=== PATIENT | female | born 1940 | race Caucasian/White ===

== ENCOUNTER 2017-02-02 13:00 | Inpatient (IN) | payer OTHER ==
[~2017-02-02] VITALS: Ht 160 cm; Wt 64.8 kg
[~2017-02-02 13:00] MED LIST: ALT5C PO; ATOR10TA PO; HYDR25TA4 PO; LYR25C PO
[2017-02-08 14:36] LABS: BASOPHILS % (AUTO) 0.4 % (0-1); EOSINOPHILS # (AUTO) 0.1 X10'3 (0-0.9); EOSINOPHILS % (AUTO) 1.6 % (0-6); LYMPHOCYTES # (AUTO) 2.4 X10'3 (1.1-4.8); LYMPHOCYTES % (AUTO) 33.5 % (21-51); MEAN CORPUSCULAR HEMOGLOBIN 30.7 PG (27.0-31.0); MEAN CORPUSCULAR HGB CONC 33.8 % (33.0-36.5); MEAN CORPUSCULAR VOLUME 90.9 FL (78-98); MEAN PLATELET VOLUME 7.6 FL (7.4-10.4); MONOCYTES # (AUTO) 0.6 X10'3 (0-0.9); MONOCYTES % (AUTO) 8.1 % (2-12); NEUTROPHILS % (AUTO) 56.4 % (42-75); PRE OP HEMATOCRIT 40.4 % (35.0-45.0); PRE OP HEMOGLOBIN 13.6 g/dL (12.0-16.0); PRE OP PLATELET COUNT 316 X10'3 (140-440); RED BLOOD COUNT 4.44 X10'6 (4.20-5.60); RED CELL DISTRIBUTION WIDTH 13.6 % (11.5-14.5)
[2017-02-08] MEDS ORDERED: HYDR-89 PO (14:36)
[2017-02-08 14:51] LABS: ALBUMIN 3.8 G/DL (3.4-5.0); ALBUMIN/GLOBULIN RATIO 1.2 (1.1-1.5); ALKALINE PHOSPHATASE 98 IU/L (46-116); BLOOD UREA NITROGEN 25 MG/DL (7-18); BUN/CREATININE RATIO 30.1 (6.6-38.0); CALCIUM 9.4 MG/DL (8.5-10.1); CHLORIDE 106 MMOL/L (99-107); CREATININE 0.83 MG/DL (0.40-0.90); PRE OP ALT 24 U/L (30-65); PRE OP ANION GAP 8 (8-16); PRE OP AST 17 U/L (10-37); PRE OP BILIRUB, TOTAL 0.3 MG/DL (0.0-1.0); PRE OP GLUCOSE 113 MG/DL (70-104); PRE OP POTASSIUM 3.6 MMOL/L (3.4-5.1); PRE OP SODIUM 142 MMOL/L (135-145); TOTAL CARBON DIOXIDE 28.1 MMOL/L (24-32); TOTAL PROTEIN 7.1 G/DL (6.4-8.2); eGFR 67 ML/MIN
[2017-02-08 15:01] LABS: CLARITY,URINE CLEAR (Clear); COLOR,URINE YELLOW (Yellow); GLUCOSE, URINE NEGATIVE (Neg); KETONES,URINE NEGATIVE (Neg); LEUKOCYTE ESTERASE ,URINE NEGATIVE (Neg); NITRITES, URINE NEGATIVE (Neg); OCCULT BLOOD,URINE SMALL (Neg); PH,URINE 5.5 (4.8-8.0); PROTEIN,URINE NEGATIVE (Neg); UROBILINOGEN,URINE 0.2 E.U/dL (0.2-1.0)
[2017-02-08 15:02] LABS: UA COLLECTION TYPE CLN CATCH MIDSTREAM
[2017-02-08 15:27] LABS: BACTERIA,URINE 1+ /HPF (Neg); MUCUS STRANDS FEW /LPF (Neg); SQUAMOUS EPITHELIAL CELL,UR MODERATE /LPF (FEW)
[2017-02-14] VITALS (17 sets, daily range): BP systolic 90–152; BP diastolic 43–91
[2017-02-14] MEDS ORDERED: ringers solution, lacted 1,000 ML IV SCH ×2 (05:00→08:18)
[2017-02-14] MEDS ORDERED: famotidine 20mg tablet PO ONE (05:30)
[2017-02-14] MEDS ORDERED: celeCOXIB 100mg capsule PO ONE (05:30)
[2017-02-14] MEDS ORDERED: acetaminophen 325mg tablet PO ONE (05:30)
[2017-02-14] MEDS ORDERED: ceFAZolin 2gm in dextrose, iso 100 ML IV ONE (05:30)
[2017-02-14] MEDS ORDERED: oxyCODONE SR 10mg (sust. release) tab PO ONE (05:30)
[2017-02-14] MEDS ORDERED: gabapentin 300mg capsule PO ONE ×2 (05:30→06:40)
[2017-02-14] MEDS ORDERED: metoclopramide 5 mg/ml inj IV ONE (05:30)
[2017-02-14] MEDS ORDERED: VANCOMYCIN INJ 1000 MG in NORMAL SALINE 250ml IV.SOLN IV ONE (05:30)
[2017-02-14] MEDS ORDERED: tranexamic acid inj. 1,000 MG in normal saline 100ml IV soln 90 ML IV ONE (05:30)
[2017-02-14] MEDS ORDERED: ketorolac trometh. 30mg/ml inj. ONE (07:06)
[2017-02-14] MEDS ORDERED: vancomycin 1,000mg inj ONE (07:07)
[2017-02-14] MEDS ORDERED: ROPIVAcaine 0.5% (5mg/ml) 30ml vial ONE (07:07)
[2017-02-14] MEDS ORDERED: epiNEPHrine 1 mg/ml inj ONE (07:07)
[2017-02-14] MEDS ORDERED: cloNIDine hcl/PF 100mcg/ml inj ONE (07:07)
[2017-02-14] MEDS ORDERED: tetracaine 1% (10mg/ml) pres. free inj. ONE (07:08)
[2017-02-14] MEDS ORDERED: MIDAZolam 1mg/ml 10ml vial ONE (07:17)
[2017-02-14] MEDS ORDERED: MORPHINE SULFATE/PF 0.5 MG/ML 10ML AMPUL ONE (07:17)
[2017-02-14] MEDS ORDERED: fentaNYL /PF 50mcg/ml 5ml ampule ONE (07:18)
[2017-02-14] MEDS ORDERED: ePHEDrine 50MG/ML INJ. ONE (07:39)
[2017-02-14] MEDS ORDERED: propofol inj 20 ML IV ONE (08:03)
[2017-02-14] MEDS ORDERED: naloxone 2mg/2ml inj 2 MG in normal saline 500ml IV soln 500 ML IV PRN (08:19)
[2017-02-14] MEDS ORDERED: meperidine/PF 25mg/ml syringe IV PRN ×3 (08:20)
[2017-02-14] MEDS ORDERED: proCHLORperazine 10 MG/2 ml inj IV PRN (08:20)
[2017-02-14] MEDS ORDERED: ondansetron/PF 4mg/2ml inj IV PRN ×3 (08:20→09:10)
[2017-02-14] MEDS ORDERED: diphenhydrAMINE 50 mg/ml inj IV PRN (08:20)
[2017-02-14] MEDS ORDERED: HYDROmorphone 1 mg/ml syringe IV PRN ×2 (09:10)
[2017-02-14] MEDS ORDERED: acetaminophen 325mg tablet PO PRN (09:10)
[2017-02-14] MEDS ORDERED: oxyCODONE/APAP 10/325mg tablet PO PRN (09:10)
[2017-02-14] MEDS ORDERED: magnesium hydroxide 30ml (MOM) UD suspension PO PRN (09:10)
[2017-02-14] MEDS ORDERED: bisacodyl 10mg suppository rectal RC PRN (09:10)
[2017-02-14] MEDS ORDERED: diphenhydrAMINE 25mg capsule PO PRN ×2 (09:10)
[2017-02-14] MEDS ORDERED: HYDROmorphone inj. 0.5 MG/0.5 ML DISP.SYRIN IV PRN ×2 (10:07)
[2017-02-14] MEDS: potassium cl 20mEq in 1/2 NS 1,000 ML IV SCH ×2 (13:30→19:59)
[2017-02-14] MEDS: oxyCODONE/APAP 10/325mg tablet PO PRN (14:51)
[2017-02-14] MEDS: cefazolin 1gm/NS 100mL 100 ML IV SCH ×2 (15:58→23:55)
[2017-02-14] MEDS ORDERED: vancomycin/NS 1 GM ADD-VANTAGE 250 ML IV SCH (20:00)
[2017-02-14] MEDS: lisinopril 10 MG tablet PO SCH (20:59)
[2017-02-14] MEDS: pregabalin 25mg capsule PO SCH (20:59)
[2017-02-14] MEDS: ascorbic acid 500mg tablet PO SCH (20:59)
[2017-02-14] MEDS: sennosides 8.6mg tablet PO SCH (21:00)
[2017-02-14] MEDS: atorvastatin 10mg tablet PO SCH (21:00)
[2017-02-15] MEDS: potassium cl 20mEq in 1/2 NS 1,000 ML IV SCH (01:09)
[2017-02-15 02:30] VITALS: BP 108/60
[2017-02-15] MEDS: oxyCODONE/APAP 10/325mg tablet PO PRN ×3 (04:26→19:29)
[2017-02-15 05:00] VITALS: BP 118/59
[2017-02-15 06:26] LABS: BASOPHILS % (AUTO) 0.1 % (0-1); EOSINOPHILS # (AUTO) 0.2 X10'3 (0-0.9); EOSINOPHILS % (AUTO) 2.2 % (0-6); HEMATOCRIT 33.5 % (35.0-45.0); HEMOGLOBIN 11.2 g/dl (12.0-16.0); LYMPHOCYTES # (AUTO) 0.9 X10'3 (1.1-4.8); LYMPHOCYTES % (AUTO) 10.6 % (21-51); MEAN CORPUSCULAR HEMOGLOBIN 30.5 PG (27.0-31.0); MEAN CORPUSCULAR HGB CONC 33.3 % (33.0-36.5); MEAN CORPUSCULAR VOLUME 91.5 FL (78-98); MEAN PLATELET VOLUME 8.3 FL (7.4-10.4); MONOCYTES # (AUTO) 0.6 X10'3 (0-0.9); MONOCYTES % (AUTO) 7.1 % (2-12); NEUTROPHILS # (AUTO) 6.6 X10'3 (1.8-7.7); PLATELET COUNT 232 X10'3 (140-440); RED BLOOD COUNT 3.67 X10'6 (4.20-5.60); RED CELL DISTRIBUTION WIDTH 13.7 % (11.5-14.5); WHITE BLOOD COUNT 8.3 X10'3 (4.5-11.0)
[2017-02-15 06:59] LABS: ANION GAP 8 (8-16); CHLORIDE 106 MMOL/L (99-107); POTASSIUM 4.3 MMOL/L (3.5-5.1); SODIUM 138 MMOL/L (135-145); TOTAL CARBON DIOXIDE 24.1 MMOL/L (24-32)
[2017-02-15] MEDS: ascorbic acid 500mg tablet PO SCH ×2 (07:50→19:30)
[2017-02-15] MEDS: aspirin 325mg tablet PO SCH (07:50)
[2017-02-15] MEDS: multivitamins, therapeutics tablet PO SCH (07:50)
[2017-02-15] MEDS ORDERED: HYDROchlorothiazide 25mg tablet PO SCH (08:00)
[2017-02-15 10:30] VITALS: BP 124/63
[2017-02-15] MEDS: Protein Smoothie (high protein) 240ml (8oz) cup PO SCH ×2 (13:28→18:00)
[2017-02-15 18:00] VITALS: BP 123/62
[2017-02-15] MEDS: pregabalin 25mg capsule PO SCH (20:48)
[2017-02-15] MEDS: lisinopril 10 MG tablet PO SCH (20:48)
[2017-02-15] MEDS: atorvastatin 10mg tablet PO SCH (20:48)
[2017-02-15] MEDS: sennosides 8.6mg tablet PO SCH (20:48)
[2017-02-15 20:52] VITALS: BP 135/67
[2017-02-15 22:00] VITALS: BP 129/73
[2017-02-16] MEDS: oxyCODONE/APAP 10/325mg tablet PO PRN ×4 (00:14→17:55)
[2017-02-16 06:00] VITALS: BP 127/73
[2017-02-16 07:48] LABS: BASOPHILS % (AUTO) 0.1 % (0-1); EOSINOPHILS # (AUTO) 0.2 X10'3 (0-0.9); EOSINOPHILS % (AUTO) 1.8 % (0-6); HEMATOCRIT 35.3 % (35.0-45.0); HEMOGLOBIN 11.9 g/dl (12.0-16.0); LYMPHOCYTES # (AUTO) 1.2 X10'3 (1.1-4.8); LYMPHOCYTES % (AUTO) 10.1 % (21-51); MEAN CORPUSCULAR HEMOGLOBIN 30.9 PG (27.0-31.0); MEAN CORPUSCULAR HGB CONC 33.7 % (33.0-36.5); MEAN CORPUSCULAR VOLUME 91.6 FL (78-98); MEAN PLATELET VOLUME 8.4 FL (7.4-10.4); MONOCYTES # (AUTO) 1.1 X10'3 (0-0.9); MONOCYTES % (AUTO) 9.3 % (2-12); NEUTROPHILS # (AUTO) 9.2 X10'3 (1.8-7.7); NEUTROPHILS % (AUTO) 78.7 % (42-75); PLATELET COUNT 249 X10'3 (140-440); RED BLOOD COUNT 3.86 X10'6 (4.20-5.60); RED CELL DISTRIBUTION WIDTH 13.5 % (11.5-14.5); WHITE BLOOD COUNT 11.7 X10'3 (4.5-11.0)
[2017-02-16] MEDS: Protein Smoothie (high protein) 240ml (8oz) cup PO SCH ×3 (08:29→18:00)
[2017-02-16] MEDS: multivitamins, therapeutics tablet PO SCH (08:33)
[2017-02-16] MEDS: aspirin 325mg tablet PO SCH (08:33)
[2017-02-16] MEDS: ascorbic acid 500mg tablet PO SCH ×2 (08:33→21:30)
[2017-02-16] MEDS ORDERED: zolpidem 5mg tablet PO PRN (10:20)
[2017-02-16 10:30] VITALS: BP 145/87
[2017-02-16 18:04] VITALS: BP 153/80
[2017-02-16] MEDS: sennosides 8.6mg tablet PO SCH (21:30)
[2017-02-16] MEDS: lisinopril 10 MG tablet PO SCH (21:31)
[2017-02-16] MEDS: pregabalin 25mg capsule PO SCH (21:31)
[2017-02-16] MEDS: atorvastatin 10mg tablet PO SCH (21:31)
[2017-02-16] MEDS: HYDROchlorothiazide 25mg tablet PO SCH (21:32)
[2017-02-16 22:00] VITALS: BP 124/75
[2017-02-17] MEDS: oxyCODONE/APAP 10/325mg tablet PO PRN ×2 (01:38→05:45)
[2017-02-17 05:00] VITALS: BP 123/64
[2017-02-17 06:36] LABS: BASOPHILS % (AUTO) 0.3 % (0-1); EOSINOPHILS # (AUTO) 0.1 X10'3 (0-0.9); EOSINOPHILS % (AUTO) 0.9 % (0-6); HEMATOCRIT 35.2 % (35.0-45.0); HEMOGLOBIN 11.8 g/dl (12.0-16.0); LYMPHOCYTES # (AUTO) 1.9 X10'3 (1.1-4.8); LYMPHOCYTES % (AUTO) 17.7 % (21-51); MEAN CORPUSCULAR HEMOGLOBIN 30.7 PG (27.0-31.0); MEAN CORPUSCULAR HGB CONC 33.4 % (33.0-36.5); MEAN CORPUSCULAR VOLUME 91.9 FL (78-98); MEAN PLATELET VOLUME 8.2 FL (7.4-10.4); MONOCYTES # (AUTO) 1.1 X10'3 (0-0.9); MONOCYTES % (AUTO) 10.4 % (2-12); NEUTROPHILS # (AUTO) 7.5 X10'3 (1.8-7.7); NEUTROPHILS % (AUTO) 70.7 % (42-75); PLATELET COUNT 272 X10'3 (140-440); RED BLOOD COUNT 3.83 X10'6 (4.20-5.60); RED CELL DISTRIBUTION WIDTH 13.8 % (11.5-14.5); WHITE BLOOD COUNT 10.6 X10'3 (4.5-11.0)
[2017-02-17] MEDS: Protein Smoothie (high protein) 240ml (8oz) cup PO SCH (08:36)
[2017-02-17] MEDS: HYDROchlorothiazide 25mg tablet PO SCH (08:37)
[2017-02-17] MEDS: aspirin 325mg tablet PO SCH (08:37)
[2017-02-17] MEDS: multivitamins, therapeutics tablet PO SCH (08:37)
[2017-02-17] MEDS: ascorbic acid 500mg tablet PO SCH (08:37)
[2017-02-17] MEDS ORDERED: ASPI-1 PO (08:44)
[2017-02-17 10:00] VITALS: BP 127/73
== END 2017-02-17 10:00 | disposition home or self-care (01) | DRG 470 ==
LOC: PAS IN 02-14 05:29 → EDSTATUS 02-14 07:30 → ORTHO 4S 02-14 10:10
PROVIDERS: ADMIT Orthopaedic Surgery; ATTEND Orthopaedic Surgery
PROC: 0SRB06Z Replacement of Left Hip Joint with Oxidized Zirconium on Polyethylene Synthetic Substitute, Open Approach (ICD-10-PCS; principal; 2017-02-14 07:16)
DX: M16.12 Unilateral primary osteoarthritis, left hip (principal); I95.9 Hypotension, unspecified; D62 Acute posthemorrhagic anemia; Z96.641 Presence of right artificial hip joint; E78.5 Hyperlipidemia, unspecified; I10 Essential (primary) hypertension; R11.2 Nausea with vomiting, unspecified; Z79.899 Other long term (current) drug therapy
CPT/HCPCS: 36415; 71046; 72170; 80051; 80053; 81001; 85025; 86885; 86900; 86901; 87070; 87088; 93005; 97110; 97116; 97162; 97530; A4615; A6255; A6449; A7000; C1758; C1776; J0171; J0690; J0735; J1170; J1885; J2250; J2274; J2405; J2704; J2765; J2795; J3010; J3370; J7120